=== PATIENT | male | born 1955 ===

== ENCOUNTER 2019-07-10 17:56 | Emergency (ER) | payer OTHER ==
[~2019-07-10 17:56] MED LIST: Iopamidol-370 76% 500 ML 1 ML ONE
[2019-07-10 19:13] LABS: Bilirubin Negative (Negative); Blood, Urine 3+ (Negative); Clarity Turbid (Clear); Glucose, Urine (Dipstick) 300 mg/dL (Negative); Leukocyte 250 Leu/uL (Negative); Nitrite Negative (Negative); Protein, Urine (Dipstick) 100 mg/dL (Neg-Trace); RBC/HPF Greater than 50 HPF (0-3); Squamous Epithelial None Seen HPF (0-3); Urobilinogen Normal mg/dL (Less than 2)
[2019-07-10 19:17] LABS: #Eosinphils 0.1 thou/uL (0.0-0.7); #Lymphocytes 1.2 thou/uL (1.20-3.40); #Monocytes 0.3 thou/uL (0.11-0.59); #Neutrophils 10.9 thou/uL (1.40-6.50); %Basophils 0.2 % (0.0-1.0); %Eosinophils 1.1 % (0.0-10.0); %Lymphocytes 9.5 % (21.0-51.0); %Monocytes 2.6 % (0.0-10.0); %Neutrophils 86.7 % (42.0-75.0); Hemoglobin 12.4 g/dL (14.0-18.0); Mean Corpuscular HGB CONC 34.5 g/dL (32.0-36.0); Mean Corpuscular Hemoglobin 30.5 pg (27.0-31.0); Mean Corpuscular Volume 88.4 fL (78.0-98.0); Mean Platelet Volume 7.8 fL (7.4-10.4); Platelet Count 336 thou/uL (130-400); RBC Distribution Width 12.1 % (11.5-14.5); Red Blood Cell (RBC) Count 4.06 mill/uL (4.70-6.10); White Blood Cell (WBC) Count 12.6 thou/uL (4.8-10.8)
[2019-07-10 19:20] LABS: Bacteria/HPF None Seen HPF (None Seen)
[2019-07-10 19:36] LABS: ALT (SGPT) 26 U/L (8-55); AST (SGOT) 36 U/L (5-34); Albumin 3.8 g/dL (3.4-4.8); Alkaline Phosphatase 117 U/L (40-110); Anion Gap 14 mmol/L (10-20); BUN (Urea Nitrogen) 29 mg/dL (8.4-25.7); Bilirubin, Total 0.4 mg/dL (0.2-1.2); Calc. Creatinine Clearance 0 mL/min (70-130); Calcium 9.2 mg/dL (7.8-10.44); Carbon Dioxide 25 mmol/L (23-31); Chloride 105 mmol/L (98-107); Estimated GFR-MDRD 66; Globulin 3.2 g/dL (2.4-3.5); Glucose 194 mg/dL (80-115); Sodium 140 mmol/L (136-145)
[2019-07-10] MEDS ORDERED: Ketorolac Tromethamine 30 MG/ML VIAL ONE (21:18)
--- NOTE | 2019-07-10 21:50 | CT ---
CT abdomen and pelvis with IV contrast HISTORY: Abdomen pain. FINDINGS: Ill-defined parenchymal infiltrates at the posterior aspect of each lung base. Multiple ill -defined low density masses are present throughout each liver lobe. The largest measures up to 5.1 cm in the left liver lobe and 3.8 cm in the right. Cysts arise from the cortex of each kidney. The la rgest is at the inferior pole of the right kidney measuring up to 3.3 cm. There is calcification throughout the arterial structures. Just anterior to the left external iliac vessels is a lobular het erogeneous somewhat low density mass measuring up to 4.2 cm x 2.6 cm greatest diameters. Prostate gland is enlarged to 7.4 cm width. The abnormal appearance of the prostate gland extends into the bas e of the urinary bladder and posterior to the bladder. No free fluid is evident. Calcification throughout the arterial structures. Judge catheter is in place. IMPRESSION: Widespread metastatic disease of the liver. Evidence of prostate neoplasm extending to the bladder base and left external iliac adenopathy. Subtle patchy parenchymal infiltrate at each posterior lung base. Clinical correlation regarding othe r signs and symptoms of bibasilar pneumonitis is required. Atherosclerosis.
== END 2019-07-10 23:00 ==
LOC: ERS 17:56
DX: E11.649 Type 2 diabetes mellitus with hypoglycemia without coma (principal); J18.9 Pneumonia, unspecified organism; C61 Malignant neoplasm of prostate; C78.7 Secondary malignant neoplasm of liver and intrahepatic bile duct; I10 Essential (primary) hypertension; E11.40 Type 2 diabetes mellitus with diabetic neuropathy, unspecified; E03.9 Hypothyroidism, unspecified; F41.9 Anxiety disorder, unspecified
CPT/HCPCS: 36415; 36416; 74177; 80053; 81003; 81015; 85025; 96374; J1885; Q9967